=== PATIENT | male | born 1950 | race Caucasian/White ===

== ENCOUNTER 2019-07-19 19:30 | Emergency (ER) | payer OTHER ==
[2019-07-19 19:39] VITALS: BP 176/113
--- NOTE | 2019-07-19 19:48 | ED Physician Documentation ---
PD HPI SKIN - Stated complaint Stated Complaint: UPPER BODY RASH - Chief complaint Chief Complaint: Wound - History obtained from History obtained from: Patient - History of Present Illness Timing - onset: Other (4 to 5 days is a fairly severely itchy rash especially on the arms and trunk, not the back or legs. No contacts with similar.) Review of Systems Constitutional: reports: Reviewed and negative Throat: reports: Reviewed and negative Cardiac: reports: Reviewed and negative PD PAST MEDICAL HISTORY - Past Medical History Past Medical History: Yes Cardiovascular: Hypertension Neuro: Peripheral neuropathy - Past Surgical History Past Surgical History: No - Present Medications Home Medications: Ambulatory Orders Medication Instructions Recorded Confirmed Doxepin [SINEquan] 10 mg PO TID PRN #30 capsule 07/19/19 Permethrin 5% Cream 1 applic TOP ONCE #2 tube 07/19/19 - Allergies Allergies/Adverse Reactions: Allergies Allergy/AdvReac Type Severity Reaction Status Date / Time carbamazepine [From Tegretol] Allergy Rash Verified 07/19/19 19:36 - Social History Does the pt smoke?: No Smoking Status: Never smoker Does the pt drink ETOH?: Yes Does the pt have substance abuse?: No - Immunizations Immunizations are current?: No - POLST Patient has POLST: No PD ED PE NORMAL - Vitals Vital signs reviewed: Yes - General General: Alert and oriented X 3, No acute distress - Derm Derm: Other (Excoriated rash on the anterior trunk and anterior forearms most consistent with scabies. No superinfection.) - Neuro Neuro: Alert and oriented X 3, Normal speech Results - Vitals Vitals: Vital Signs - 24 hr 07/19/19 19:33 Temperature 36.0 C L Heart Rate 67 Respiratory 15 Rate Blood Pressure 176/113 H O2 Saturation 97 Oxygen O2 Source Room air Departure - Departure Disposition: Home, Self Care Clinical Impression: Scabies Condition: Good Record reviewed to determine appropriate education?: Yes Instructions: ED Scabies Prescriptions: Doxepin [SINEquan] 10 mg PO TID PRN #30 capsule PRN Reason: Itching Permethrin 5% Cream 1 applic TOP ONCE #2 tube Comments: As discussed, this rash is most consistent with scabies. No follow-up is necessary if you resolve completely, but if you are having persistent symptoms follow-up with the adaptive physical education specialist. Your blood pressure was elevated today on check into the emergency department. This does not mean that you have hypertension, it is a common phenomenon to come to the emergency department and have elevated blood pressure. I recommend that you see your primary care physician within the week to have it rechecked when you are feeling better.
== END 2019-07-19 19:59 | disposition home or self-care (01) ==
LOC: ED 19:30
DX: B86 Scabies (principal); I10 Essential (primary) hypertension
CPT/HCPCS: 99282; 99283